=== PATIENT | female | born 1975 | race African-American/Black ===

== ENCOUNTER 2016-11-05 21:42 | Emergency (ER) | payer MEDICAID, OTHER ==
[~2016-11-05] VITALS: Ht 180.3 cm; Wt 77.1 kg
[~2016-11-05 21:42] MED LIST: BACLOFEN10 MG ORAL; DILANTIN100 MG ORAL
[2016-11-05 23:40] LABS: APPEARANCE,URINE CLEAR; KETONES,URINE NEGATIVE (NEGATIVE); LEUKOCYTE ESTERASE ,URINE 2+ (NEGATIVE); NITRITE,URINE POSITIVE (NEGATIVE); PH,URINE 6 (4.5-8.0); PROTEIN,URINE 1+ (NEGATIVE); UROBILINOGEN,URINE NORMAL MG/DL (0.0-1.0)
[2016-11-05 23:51] LABS: SQUAMOUS EPITHELIAL CELL,UR MODERATE /LPF (NONE/OCC); WBC,URINE 20-30 /HPF (0 - 2)
[2016-11-05 23:52] LABS: BACTERIA,URINE MANY /HPF
[2016-11-06] MEDS ORDERED: Cephalexin 500mg cap ORAL ONE (00:15)
[2016-11-06] MEDS ORDERED: Cephalexin 500mg cap ONE (00:16)
[2016-11-06] MEDS ORDERED: KEFLEX500 MG ORAL (00:18)
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
[2016-11-06 00:22] VITALS: BP 99/62
[2016-11-06 02:05] VITALS: BP 105/65
[2016-11-06 02:07] VITALS: BP 105/65
[2016-11-11] MEDS ORDERED: NITROFURANTOIN100 M2 ORAL (13:20)
== END 2016-11-06 02:08 | disposition home or self-care (01) ==
LOC: EDBD 21:42 → EMR 22:15
DX: N39.0 Urinary tract infection, site not specified (principal); I96 Gangrene, not elsewhere classified; G89.29 Other chronic pain; M79.671 Pain in right foot; F16.10 Hallucinogen abuse, uncomplicated; Z99.3 Dependence on wheelchair; F17.200 Nicotine dependence, unspecified, uncomplicated
CPT/HCPCS: 80300; 81003; 87086; 87181; 99283